=== PATIENT | male | born 1945 | race Caucasian/White ===

== ENCOUNTER 2020-02-06 09:49 | Inpatient (IN) ==
[2020-02-06] MEDS ORDERED: ACETAMINOPHEN 325 MG TABLET PO ONE (10:01)
--- NOTE | 2020-02-06 10:05 | ERNOTE ---
Medical Problem HPI - Narrative Date of Service: 02/06/20 - General Chief Complaint: Fever Time Seen by Provider: 02/06/20 09:58 Source: patient Exam Limitations: other - He does not know anything about his medications and little about his history. - Immun/Allergies/Home Medications Immunizations: IMMUNIZATION HX Immunizations Up to Date Yes History of Influenza Vaccine No Hx Pneumococcal Vaccination No Allergies/Adverse Reactions: Allergies lisinopril Allergy (Unknown, Verified 02/06/20 10:52) Penicillins Adverse Reaction (Mild, Verified 02/06/20 10:05) syncope Home Medications: HOME MEDICATIONS Acetaminophen [Tylenol] 1,000 mg PO Q8H PRN 02/06/20 [Last Taken Unknown] Amlodipine Besylate 5 mg PO DAILY 02/06/20 [Last Taken Unknown] Apixaban [Eliquis] 5 mg PO DAILY 02/06/20 [Last Taken Unknown] Aspirin [Aspirin EC] 81 mg PO DAILY 02/06/20 [Last Taken Unknown] Atorvastatin Calcium [Lipitor] 20 mg PO DAILY 02/06/20 [Last Taken Unknown] Bisacodyl 10 mg RC QDIPM PRN 02/06/20 [Last Taken Unknown] Clopidogrel Bisulfate [Clopidogrel] 300 mg PO DAILY 02/06/20 [Last Taken Unknown] Dextromethorphan HBr/Quinidine [Nuedexta 20-10 mg Capsule] 1 ea PO DAILY 02/06/20 [Last Taken Unknown] Diphenhydramine HCl 25 mg PO DAILY 02/06/20 [Last Taken Unknown] EPINEPHrine [Epipen] 0.3 mg IM PRN PRN 02/06/20 [Last Taken Unknown] Glucosamine/D3/Boswellia Ilene [Osteo Bi-Flex Caplet] 1 ea PO DAILY 02/06/20 [Last Taken Unknown] L. Acidophilus/Pectin, [place] [Acidophilus-Pectin Capsule] 1 ea PO DAILY 02/06/20 [Last Taken Unknown] Losartan Potassium 50 mg PO DAILY 02/06/20 [Last Taken Unknown] Magnesium Hydroxide [Milk of Magnesia] 30 ml PO Q3D PRN 02/06/20 [Last Taken Unknown] Miconazole Nitrate [Maddie] 1 appl TOPICAL BID 02/06/20 [Last Taken Unknown] Ondansetron [Zofran Odt] 4 mg PO Q8H PRN 07/17/20 [Last Taken Unknown] Pantoprazole Sodium [Protonix] 20 mg PO DAILY 02/06/20 [Last Taken Unknown] Polyethylene Glycol 3350 [Miralax] 17 gm PO DAILY 02/06/20 [Last Taken Unknown] Polyethylene Glycol 3350 [Miralax] 17 gm PO DAILY PRN 02/06/20 [Last Taken Unknown] Potassium Chloride [Klor-Con] 20 meq PO TID 02/06/20 [Last Taken Unknown] Sodium Phosphate,[place]-Dibasic [Fleet Enema] 1 enema RC DAILY PRN 02/06/20 [Last Taken Unknown] Vits A and D/White Pet/Lanolin [A and D Ointment] 1 appl TOPICAL PRN PRN 02/06/20 [Last Taken Unknown] guaiFENesin [Mucus Relief] 800 mg PO TID PRN 02/06/20 [Last Taken Unknown] - History of Present History Narrative: This patient is a 74-year-old gentleman who lives in a halfway. He was sent here by ambulance for a fever. It has been present for 2 nights and the maximum was 100.8. He vomited overnight. He does not feel well. 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 He has generalized weakness. He denies cough or cold symptoms. He has a mild amount of coughing during the exam. He denies urinary symptoms. He denies abdominal symptoms, other than the episode of vomiting. 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 Review of Systems - Review of Systems All Other Systems: All systems neg except as marked Medical History (Last Updated 02/06/20 @ 10:05 by Debbie Chacon RN) Arthropathy of left knee CVA (cerebral vascular accident) Hypertension Social History: (Last Updated 02/06/20 @ 10:04 by Debbie Chacon RN) Tobacco: Smoking Status: Never smoker Alcohol: alcohol intake: never Substance Use: substance use type: does not use Physical Exam - Physical Exam General Appearance: Present: alert, no apparent distress, other - Obvious left- sided hemiplegia Head Exam: Present: normal inspection, no evidence of injury Eye Exam: Normal inspection: bilateral Ears, Nose, Throat: Present: normal ENT inspection Neck: Present: normal inspection, supple. Absent: lymphadenopathy (R), lymphadenopathy (L) Respiratory: Present: no respiratory distress, normal breath sounds, lungs clear Cardiovascular/Chest: Present: regular rate, rhythm, no murmur Gastrointestinal/Abdominal: Present: normal bowel sounds, nontender, nondistended, soft, no organomegaly Extremity Exam: Present: normal inspection, non-tender, no edema Neurological Exam: Present: alert, normal mood/affect, other - Left-sided hemiplegia Skin Exam: Present: normal color, warm/dry Progress - Date and Time Seen: Date and Time: 02/06/20 12:12 I spoke with the patient and staff member at his halfway. The labs and x-rays were discussed. The halfway is expecting the patient will be kept here. The patient is agreeable to staying. I spoke with Dr. Garcia, who agrees to care for the patient. - Results and Orders Patient's Lab Results:: I have reviewed the patient's lab results. Results and Orders: Laboratory Tests 02/06/20 02/06/20 02/06/20 10:10 10:10 10:10 WBC 16.3 H RBC 4.55 L Hgb 14.7 Hct 43.9 MCV 96.5 MCH 32.3 H MCHC 33.5 RDW 13.3 Plt Count 223 MPV 10.1 Immature Gran % (Auto) 0.60 H Immature Gran # (Auto) 0.09 H Neutrophils % 86.3 H Lymphocytes % 6.5 L Monocytes % 6.3 Eosinophils % 0.1 Basophils % 0.2 Nucleated RBC % 0.0 Neutrophils # 14.0 H Lymphocytes # 1.06 L Monocytes # 1.0 Eosinophils # 0.0 Absolute Basophils 0.0 PT 11.7 H INR (Anticoag Therapy) 1.19 H Sodium 136 Plasma Sodium 136 Potassium 4.5 Chloride 101 Carbon Dioxide 25.0 Anion Gap 14.5 H BUN 16 Creatinine 0.87 Est GFR (Non-Af Amer) 92 BUN/Creatinine Ratio 18.4 Random Glucose 103 Lactic Acid, Venous Calcium 9.5 Calcium Adj for Albumin 9.6 Total Bilirubin 1.0 AST 12 ALT 13 L Alkaline Phosphatase 85 C-Reactive Prot, Quant 11.3 H Total Protein 8.2 Albumin 3.5 Procalcitonin Urine Color Urine Appearance Urine pH Ur Specific [place] Urine Protein Urine Glucose (UA) Urine Ketones Urine Blood Urine Nitrate Urine Bilirubin Urine Ictotest Prot Sulfosalicylic Acd Urine Urobilinogen Ur Leukocyte Esterase Urine RBC Urine WBC Ur Epithelial Cells Urine Bacteria Urine Culture Comments Chlamy pneumoniae PCR Adenovirus (PCR) B. pertussis DNA (PCR) Coronavirus OC43 (PCR) Coronavirus HKU1 (PCR) Coronavirus 229E (PCR) Coronavirus NL63 (PCR) Human Metapneumovir PCR Influenza A (H1) PCR Influenza A (H1N1) PCR Influenza A (H3) PCR Influenza B (RT-PCR) M. pneumoniae (PCR) Parainfluenza 1 (PCR) Parainfluenza 2 (PCR) Parainfluenza 3 (PCR) Parainfluenza 4 (PCR) RSV (PCR) Rhinovirus (PCR) SARS-CoV-2 (PCR) 02/06/20 02/06/20 02/06/20 10:10 10:10 10:15 WBC RBC Hgb Hct MCV MCH MCHC RDW Plt Count MPV Immature Gran % (Auto) Immature Gran # (Auto) Neutrophils % Lymphocytes % Monocytes % Eosinophils % Basophils % Nucleated RBC % Neutrophils # Lymphocytes # Monocytes # Eosinophils # Absolute Basophils PT INR (Anticoag Therapy) Sodium Plasma Sodium Potassium Chloride Carbon Dioxide Anion Gap BUN Creatinine Est GFR (Non-Af Amer) BUN/Creatinine Ratio Random Glucose Lactic Acid, Venous 2.5 H* Calcium Calcium Adj for Albumin Total Bilirubin AST ALT Alkaline Phosphatase C-Reactive Prot, Quant Total Protein Albumin Procalcitonin 0.07 Urine Color [place] Urine Appearance Clear Urine pH 5.5 Ur Specific [place] >=1.030 Urine Protein 15 H Urine Glucose (UA) Negative Urine Ketones 5 Urine Blood Negative Urine Nitrate Negative Urine Bilirubin 1 H Urine Ictotest Negative Prot Sulfosalicylic Acd Negative Urine Urobilinogen Normal Ur Leukocyte Esterase Negative Urine RBC None seen Urine WBC 0-5 Ur Epithelial Cells 0-5 Urine Bacteria Trace Urine Culture Comments No culture indicated Chlamy pneumoniae PCR Adenovirus (PCR) B. pertussis DNA (PCR) Coronavirus OC43 (PCR) Coronavirus HKU1 (PCR) Coronavirus 229E (PCR) Coronavirus NL63 (PCR) Human Metapneumovir PCR Influenza A (H1) PCR Influenza A (H1N1) PCR Influenza A (H3) PCR Influenza B (RT-PCR) M. pneumoniae (PCR) Parainfluenza 1 (PCR) Parainfluenza 2 (PCR) Parainfluenza 3 (PCR) Parainfluenza 4 (PCR) RSV (PCR) Rhinovirus (PCR) SARS-CoV-2 (PCR) 02/06/20 10:32 WBC RBC Hgb Hct MCV MCH MCHC RDW Plt Count MPV Immature Gran % (Auto) Immature Gran # (Auto) Neutrophils % Lymphocytes % Monocytes % Eosinophils % Basophils % Nucleated RBC % Neutrophils # Lymphocytes # Monocytes # Eosinophils # Absolute Basophils PT INR (Anticoag Therapy) Sodium Plasma Sodium Potassium Chloride Carbon Dioxide Anion Gap BUN Creatinine Est GFR (Non-Af Amer) BUN/Creatinine Ratio Random Glucose Lactic Acid, Venous Calcium Calcium Adj for Albumin Total Bilirubin AST ALT Alkaline Phosphatase C-Reactive Prot, Quant Total Protein Albumin Procalcitonin Urine Color Urine Appearance Urine pH Ur Specific [place] Urine Protein Urine Glucose (UA) Urine Ketones Urine Blood Urine Nitrate Urine Bilirubin Urine Ictotest Prot Sulfosalicylic Acd Urine Urobilinogen Ur Leukocyte Esterase Urine RBC Urine WBC Ur Epithelial Cells Urine Bacteria Urine Culture Comments Chlamy pneumoniae PCR Not detected Adenovirus (PCR) Not detected B. pertussis DNA (PCR) Not detected Coronavirus OC43 (PCR) Not detected Coronavirus HKU1 (PCR) Not detected Coronavirus 229E (PCR) Not detected Coronavirus NL63 (PCR) Not detected Human Metapneumovir PCR Not detected Influenza A (H1) PCR Not detected Influenza A (H1N1) PCR Not detected Influenza A (H3) PCR Not detected Influenza B (RT-PCR) Not detected M. pneumoniae (PCR) Not detected Parainfluenza 1 (PCR) Not detected Parainfluenza 2 (PCR) Not detected Parainfluenza 3 (PCR) Not detected Parainfluenza 4 (PCR) Not detected RSV (PCR) Not detected Rhinovirus (PCR) Not detected SARS-CoV-2 (PCR) Not detected - Vital Signs Patient's Vital Signs:: I have reviewed the patient's vital signs. Vital Signs: Vital Signs 02/06/20 09:50 Temperature 38.7 C H Pulse Rate 105 H Respiratory Rate 16 Blood Pressure 156/92 H O2 Sat by Pulse Oximetry 93 - EKG EKG #1 EKG read: Reviewed by me EKG Comments: History: Fever. Technique: Portable AP view of the chest is evaluated without comparison. Findings: Diffuse hyperinflation of the lungs bilaterally with flattening of the hemidiaphragm. Chronic scarring scattered calcified granulomas. The lungs are clear bilaterally. There is no consolidation, pleural effusion or pneumothorax. Cardiac silhouette and pulmonary vasculature are normal. Aortic tortuosity and atherosclerosis. The osseous structures demonstrate degenerative changes of the spine and shoulders. IMPRESSION: NO ACUTE CARDIOPULMONARY ABNORMALITY IDENTIFIED. Electronically signed by Paulo Potter D.O.. - Progress/Reassessment Chief Complaint: Fever Departure Clinical Impression: Fever, Elevated WBC count - Departure Disposition: Still a patient Condition: Stable Referrals: Alexus Angela MD [Primary Care Provider] -
[2020-02-06] MEDS: NORMAL SALINE 1,000 ML IV PRN ×3 (10:07→23:54)
[2020-02-06 10:21] LABS: Hematocrit 43.9 % (42.0-52.0); Hemoglobin 14.7 gm/dL (13.5-18.0); Mean Cell Volume 96.5 fl (78-100); Mean Corpuscular Hemoglobin 32.3 pg (27-31); Mean Corpuscular Hgb Conc 33.5 g/dl (32-36); Mean Platelet Volume 10.1 fl (8-11.3); Neutrophil % 86.3 % (42-75.0); Platelet Count 223 K/mm3 (150-450); Red Blood Count 4.55 M/mm3 (4.7-6.0); Red Cell Distribution Width 13.3 % (11.5-14.0); White Blood Count 16.3 K/mm3 (4.0-10.5)
[2020-02-06 10:27] LABS: Prothrombin Time (Patient) 11.7 Seconds (9.1-10.7)
[2020-02-06 10:30] LABS: INR 1.19 INR (0.92-1.08)
[2020-02-06 10:33] LABS: Albumin * 3.5 gm/dl (3.4-5.0); Anion Gap 14.5 mmol/L (6.8-13.8); BUN/Creatinine Ratio 18.4 (9.0-21.6); CRP 11.3 mg/dL (0.0-0.9); Ca. Corrected For Albumin 9.6 mg/dL (8.4-10.2); Calcium * 9.5 mg/dL (7.9-10.9); Potassium 4.5 mmol/L (3.4-4.6); Total Protein 8.2 gm/dL (6.2-8.2)
[2020-02-06 10:48] LABS: Urine Bilirubin 1 mg/dl (NEGATIVE); Urine Blood Negative /ul (NEGATIVE); Urine Ketone 5 mg/dL (NEGATIVE); Urine Nitrite Negative (NEGATIVE); Urine Protein 15 mg/dL (NEGATIVE); Urine Specific Gravity >=1.030 SP.GR. (1.005-1.030); Urine Urobilinogen Normal (NORMAL); Urine pH 5.5 pH (5.0-7.0)
[2020-02-06 11:08] LABS: Urine Appearance Clear (CLEAR); Urine Bacteria TRACE; Urine Color Orange; Urine RBC None Seen /hpf (0-5); Urine WBC 0-5 /hpf (0-5)
[2020-02-06] MEDS ORDERED: NORMAL SALINE 1,000 ML IV ONE (11:32)
[2020-02-06 11:40] LABS: SARS-CoV-2 Not Detected (NotDetected)
[2020-02-06] MEDS ORDERED: cefTRIAXone SODIUM 1,000 MG/100 ML BAG IV ONE ×2 (12:02→15:45)
[2020-02-06] MEDS ORDERED: NON-FORMULARY 1 DOSE DOSE IV SCH (12:15)
[2020-02-06] MEDS ORDERED: AZITHROMYCIN 500 MG in DEXTROSE 5 % IN WATER 250 ML IV ONE ×2 (12:30)
[2020-02-06] MEDS ORDERED: MAGNESIUM HYDROXIDE 30 ML UDC PO PRN (13:55)
[2020-02-06] MEDS ORDERED: SODIUM PHOSPHATE,MONO-DIBASIC 1 ENEMA BTL RC PRN (13:55)
[2020-02-06] MEDS ORDERED: ONDANSETRON 4 MG TAB.RAPDIS PO PRN (13:55)
[2020-02-06] MEDS ORDERED: POLYETHYLENE GLYCOL 3350 17 GM PACKET PO PRN (13:55)
[2020-02-06] MEDS ORDERED: BISACODYL 10 MG SUPP.RECT RC PRN (13:55)
[2020-02-06] MEDS: APIXABAN 5 MG TABLET PO SCH (15:48)
[2020-02-06] MEDS: LOSARTAN POTASSIUM 50 MG TABLET PO SCH (15:48)
[2020-02-06] MEDS: POTASSIUM CHLORIDE 20 MEQ TABLET.SA PO SCH (18:31)
[2020-02-06] MEDS ORDERED: ONDANSETRON HCL 4 MG TABLET PO PRN (19:26)
--- NOTE | 2020-02-06 19:42 | HP ---
Chief Complaint - Chief Complaint Date of Service: 02/06/20 Time of Service: 18:50 Chief Complaint: fever, leukocytosis, cellulitis of leg History of Present Illness: Suresh Dinero is a 74-year-old white male admitted through ER with fever, leukocytosis, and etiology uncertain. He was coughing a lot but chest x-ray is normal and the urinalysis is normal. Cultures were done. On my exam I found that his left leg is hot to touch and swollen and reddened. There are no open sores or drainage or purulence. This is a non-purulent cellulitis of the left lower extremity. It extends from the foot to just above the knee. There is no inguinal adenopathy. The d-dimer was negative (normal). He has had a series of strokes and says that he has had 5 strokes on the left and one stroke on the right. His speech is actually quite good. He said it took about 2 months for his speech to return after the initial stroke. The stroke occurred in 2016. He has been living in a [facility] from which he will claim he escaped. He is now living in a detention where the care is not great according to him. Nonetheless, he has snf. Medical History (Last Updated 02/06/20 @ 13:35 by Aide Longo RN) Arthropathy of left knee CVA (cerebral vascular accident) x6 Hypertension Social History: (Last Updated 02/06/20 @ 10:04 by Debbie Chacon RN) Tobacco: Smoking Status: Never smoker Alcohol: alcohol intake: never Substance Use: substance use type: does not use Review Of Systems (GEN) - Review of Systems Generalized/Overall Review: Present: Weakness, Fever, Malaise, Fatigue EENTM: Present: No Symptoms Reported Respiratory: Present: Cough Cardiac: Present: No Symptoms Reported Abdominal: Present: No Symptoms Reported Genitourinary: Present: No Symptoms Reported Musculoskeletal: Present: Other - Left hemiparesis Neurological: Present: Weakness, Other - Hemiparesis due to stroke Skin: Present: No Symptoms Reported Endocrine: Present: No Symptoms Reported Immunizations: IMMUNIZATION HX Immunizations Up to Date Yes History of Influenza Vaccine No Hx Pneumococcal Vaccination No Allergies/Adverse Reactions: Allergies Allergy/AdvReac Type Severity Reaction Status Date / Time lisinopril Allergy Unknown Verified 02/06/20 10:52 Penicillins AdvReac Mild Verified 02/06/20 10:05 Home Medications: HOME MEDICATIONS Acetaminophen [Tylenol] 1,000 mg PO Q8H PRN 02/06/20 [Last Taken Unknown] Amlodipine Besylate 5 mg PO DAILY 02/06/20 [Last Taken Unknown] Apixaban [Eliquis] 5 mg PO BID 02/06/20 [Last Taken Unknown] Atorvastatin Calcium [Lipitor] 20 mg PO DAILY 02/06/20 [Last Taken Unknown] Bisacodyl 10 mg RC QDIPM PRN 02/06/20 [Last Taken Unknown] Dextromethorphan HBr/Quinidine [Nuedexta 20-10 mg Capsule] 1 ea PO DAILY 02/06/20 [Last Taken Unknown] EPINEPHrine [Epipen] 0.3 mg IM PRN PRN 02/06/20 [Last Taken Unknown] Glucosamine/D3/Boswellia Ilene [Osteo Bi-Flex Caplet] 1 ea PO DAILY 02/06/20 [Last Taken Unknown] L. Acidophilus/Pectin, [place] [Acidophilus-Pectin Capsule] 1 ea PO DAILY 02/06/20 [Last Taken Unknown] Lactobacillus Acidophilus [Acidophilus] 1 ea PO DAILY 02/06/20 [Last Taken Unknown] Losartan Potassium 50 mg PO DAILY 02/06/20 [Last Taken Unknown] Magnesium Hydroxide [Milk of Magnesia] 30 ml PO Q72H PRN 02/06/20 [Last Taken Unknown] Miconazole Nitrate [Maddie] 1 appl TOPICAL BID 02/06/20 [Last Taken Unknown] Ondansetron HCl [Zofran] 4 mg PO TID PRN 02/06/20 [Last Taken Unknown] Pantoprazole Sodium [Protonix] 20 mg PO DAILY 02/06/20 [Last Taken Unknown] Polyethylene Glycol 3350 [Miralax] 17 gm PO DAILY 02/06/20 [Last Taken Unknown] Polyethylene Glycol 3350 [Miralax] 17 gm PO DAILY PRN 02/06/20 [Last Taken Unknown] Potassium Chloride [Klor-Con] 20 meq PO TID 02/06/20 [Last Taken Unknown] Sennosides/Docusate Sodium [Senokot-S] 1 tab PO DAILY 02/06/20 [Last Taken Unknown] Sodium Phosphate,[place]-Dibasic [Fleet Enema] 1 enema RC DAILY PRN 02/06/20 [Last Taken Unknown] Vits A and D/White Pet/Lanolin [A and D Ointment] 1 appl TOPICAL PRN PRN 02/06/20 [Last Taken Unknown] guaiFENesin [Mucus Relief] 800 mg PO TID PRN 02/06/20 [Last Taken Unknown] Exam - Exam Vital Signs: Vital Signs - Last Taken Temp 36.9 C 02/06/20 19:19 Pulse 88 02/06/20 19:19 Resp 20 02/06/20 19:19 BP 133/59 02/06/20 19:19 Pulse Ox 99 02/06/20 19:19 Constitutional: Present: Alert, Oriented x3, Cooperative, Well developed, Well nourished, No distress ENT Exam: Present: normal ENT inspection, hearing grossly normal, pharynx normal, TMs normal Eye Exam: bilateral eye: normal inspection, PERRL, EOMI Neck: Present: non-tender, full range of motion, supple Back Exam: Present: normal inspection, no CVA tenderness, no vertebral tenderness Breasts: Present: Exam deferred, Nontender Respiratory: Present: chest non-tender, lungs clear, normal breath sounds, no respiratory distress, no accessory muscle use Cardiovascular/Chest: Present: normal peripheral pulses, regular rate, rhythm, no chest tenderness, edema - Pitting lower extremities Peripheral Pulses: carotid (R): 2+, carotid (L): 2+, radial (R): 2+, radial (L): 2+ Abdomen: Present: Normal bowel sounds, soft, nontender, nondistended, no rebound tenderness, no hepatospenomegaly, no masses /Rectal: Present: Exam deferred Extremity: Present: normal range of motion - On the right side, no calf tenderness, normal capillary refill, inflammation, swelling, other - Erythema with palpable fever in the left lower extremity. 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 Absent: normal cerebellar test Appearance: Present: appropriate appearance, appropriate insight, no memory impairment Eye contact: Present: cooperative, good eye contact, normal speech Thoughts: Present: normal thought pattern, no apparent hallucination Diagnostic Studies: Abnormal Lab Results 02/06/20 02/06/20 02/06/20 Range/Units 10:10 10:10 10:10 WBC 16.3 H (4.0-10.5) K/mm3 RBC 4.55 L (4.7-6.0) M/mm3 MCH 32.3 H (27-31) pg Immature Gran % (Auto) 0.60 H (0.001-0.429) % Immature Gran # (Auto) 0.09 H (0.000-0.0310) K/mm3 Neutrophils % 86.3 H (42-75.0) % Lymphocytes % 6.5 L (20-51) % Neutrophils # 14.0 H (1.3-6.0) K/mm3 Lymphocytes # 1.06 L (1.5-3.5) k/mm3 PT 11.7 H (9.1-10.7) Seconds INR (Anticoag Therapy) 1.19 H (0.92-1.08) INR Anion Gap 14.5 H (6.8-13.8) mmol/L Lactic Acid, Venous (0.4-2.0) mmol/L ALT 13 L (19-67) U/L C-Reactive Prot, Quant 11.3 H (0.0-0.9) mg/dL Urine Protein (NEGATIVE) mg/dL Urine Bilirubin (NEGATIVE) mg/dl 02/06/20 02/06/20 Range/Units 10:10 10:15 WBC (4.0-10.5) K/mm3 RBC (4.7-6.0) M/mm3 MCH (27-31) pg Immature Gran % (Auto) (0.001-0.429) % Immature Gran # (Auto) (0.000-0.0310) K/mm3 Neutrophils % (42-75.0) % Lymphocytes % (20-51) % Neutrophils # (1.3-6.0) K/mm3 Lymphocytes # (1.5-3.5) k/mm3 PT (9.1-10.7) Seconds INR (Anticoag Therapy) (0.92-1.08) INR Anion Gap (6.8-13.8) mmol/L Lactic Acid, Venous 2.5 H* (0.4-2.0) mmol/L ALT (19-67) U/L C-Reactive Prot, Quant (0.0-0.9) mg/dL Urine Protein 15 H (NEGATIVE) mg/dL Urine Bilirubin 1 H (NEGATIVE) mg/dl Laboratory Results WBC 16.3 K/mm3 (4.0-10.5) H 02/06/20 10:10 RBC 4.55 M/mm3 (4.7-6.0) L 02/06/20 10:10 Hgb 14.7 gm/dL (13.5-18.0) 02/06/20 10:10 Hct 43.9 % (42.0-52.0) 02/06/20 10:10 MCV 96.5 fl (78-100) 02/06/20 10:10 MCH 32.3 pg (27-31) H 02/06/20 10:10 MCHC 33.5 g/dl (32-36) 02/06/20 10:10 RDW 13.3 % (11.5-14.0) 02/06/20 10:10 Plt Count 223 K/mm3 (150-450) 02/06/20 10:10 MPV 10.1 fl (8-11.3) 02/06/20 10:10 Immature Gran % (Auto) 0.60 % (0.001-0.429) H 02/06/20 10:10 Immature Gran # (Auto) 0.09 K/mm3 (0.000-0.0310) H 02/06/20 10:10 Neutrophils % 86.3 % (42-75.0) H 02/06/20 10:10 Lymphocytes % 6.5 % (20-51) L 02/06/20 10:10 Monocytes % 6.3 % (0.0-9) 02/06/20 10:10 Eosinophils % 0.1 % (0.0-3.0) 02/06/20 10:10 Basophils % 0.2 % (0.0-1.0) 02/06/20 10:10 Nucleated RBC % 0.0 k/mm3 (0-1) 02/06/20 10:10 Neutrophils # 14.0 K/mm3 (1.3-6.0) H 02/06/20 10:10 Lymphocytes # 1.06 k/mm3 (1.5-3.5) L 02/06/20 10:10 Monocytes # 1.0 k/mm3 (0.0-1.0) 02/06/20 10:10 Eosinophils # 0.0 k/mm3 (0.0-0.7) 02/06/20 10:10 Absolute Basophils 0.0 k/mm3 (0.0-0.1) 02/06/20 10:10 PT 11.7 Seconds (9.1-10.7) H 02/06/20 10:10 INR (Anticoag Therapy) 1.19 INR (0.92-1.08) H 02/06/20 10:10 D-Dimer 0.37 ug/mL (0.19-0.49) 02/06/20 13:15 Sodium 136 mmol/L (132-142) 02/06/20 10:10 Plasma Sodium 136 mmol/L (130-142) 02/06/20 10:10 Potassium 4.5 mmol/L (3.4-4.6) 02/06/20 10:10 Chloride 101 mmol/L (97-106) 02/06/20 10:10 Carbon Dioxide 25.0 mmol/L (24-32.6) 02/06/20 10:10 Anion Gap 14.5 mmol/L (6.8-13.8) H 02/06/20 10:10 BUN 16 mg/dL (6-23) 02/06/20 10:10 Creatinine 0.87 mg/dL (0.4-1.4) 02/06/20 10:10 Est GFR (Non-Af Amer) 92 mL/min (60-130) 02/06/20 10:10 BUN/Creatinine Ratio 18.4 (9.0-21.6) 02/06/20 10:10 Random Glucose 103 mg/dL (70-110) 02/06/20 10:10 Lactic Acid, Venous 1.6 mmol/L (0.4-2.0) 02/06/20 13:15 Calcium 9.5 mg/dL (7.9-10.9) 02/06/20 10:10 Calcium Adj for Albumin 9.6 mg/dL (8.4-10.2) 02/06/20 10:10 Total Bilirubin 1.0 mg/dL (0.0-1.1) 02/06/20 10:10 AST 12 U/L (0-48) 02/06/20 10:10 ALT 13 U/L (19-67) L 02/06/20 10:10 Alkaline Phosphatase 85 U/L (50-170) 02/06/20 10:10 C-Reactive Prot, Quant 11.3 mg/dL (0.0-0.9) H 02/06/20 10:10 Total Protein 8.2 gm/dL (6.2-8.2) 02/06/20 10:10 Albumin 3.5 gm/dl (3.4-5.0) 02/06/20 10:10 Procalcitonin 0.07 ng/mL (0.05-0.50) 02/06/20 10:10 Urine Color [place] 02/06/20 10:15 Urine Appearance Clear (CLEAR) 02/06/20 10:15 Urine pH 5.5 pH (5.0-7.0) 02/06/20 10:15 Ur Specific [place] >=1.030 SP.GR. (1.005-1.030) 02/06/20 10:15 Urine Protein 15 mg/dL (NEGATIVE) H 02/06/20 10:15 Urine Glucose (UA) Negative mg/dL (NEGATIVE) 02/06/20 10:15 Urine Ketones 5 mg/dL (NEGATIVE) 02/06/20 10:15 Urine Blood Negative /ul (NEGATIVE) 02/06/20 10:15 Urine Nitrate Negative (NEGATIVE) 02/06/20 10:15 Urine Bilirubin 1 mg/dl (NEGATIVE) H 02/06/20 10:15 Urine Ictotest Negative (NEGATIVE) 02/06/20 10:15 Prot Sulfosalicylic Acd Negative mg/dL (0) 02/06/20 10:15 Urine Urobilinogen Normal EU/dl (NORMAL) 02/06/20 10:15 Ur Leukocyte Esterase Negative /ul (NEGATIVE) 02/06/20 10:15 Urine RBC None seen /hpf (0-5) 02/06/20 10:15 Urine WBC 0-5 /hpf (0-5) 02/06/20 10:15 Ur Epithelial Cells 0-5 /hpf (0-5) 02/06/20 10:15 Urine Bacteria Trace (NONE) 02/06/20 10:15 Urine Culture Comments No culture indicated 02/06/20 10:15 Chlamy pneumoniae PCR Not detected (NotDetected) 02/06/20 10:32 Adenovirus (PCR) Not detected (NotDetected) 02/06/20 10:32 B. pertussis DNA (PCR) Not detected (NotDetected) 02/06/20 10:32 Coronavirus OC43 (PCR) Not detected (NotDetected) 02/06/20 10:32 Coronavirus HKU1 (PCR) Not detected (NotDetected) 02/06/20 10:32 Coronavirus 229E (PCR) Not detected (NotDetected) 02/06/20 10:32 Coronavirus NL63 (PCR) Not detected (NotDetected) 02/06/20 10:32 Human Metapneumovir PCR Not detected (NotDetected) 02/06/20 10:32 Influenza A (H1) PCR Not detected (NotDetected) 02/06/20 10:32 Influenza A (H1N1) PCR Not detected (NotDetected) 02/06/20 10:32 Influenza A (H3) PCR Not detected (NotDetected) 02/06/20 10:32 Influenza B (RT-PCR) Not detected (NotDetected) 02/06/20 10:32 M. pneumoniae (PCR) Not detected (NotDetected) 02/06/20 10:32 Parainfluenza 1 (PCR) Not detected (NotDetected) 02/06/20 10:32 Parainfluenza 2 (PCR) Not detected (NotDetected) 02/06/20 10:32 Parainfluenza 3 (PCR) Not detected (NotDetected) 02/06/20 10:32 Parainfluenza 4 (PCR) Not detected (NotDetected) 02/06/20 10:32 RSV (PCR) Not detected (NotDetected) 02/06/20 10:32 Rhinovirus (PCR) Not detected (NotDetected) 02/06/20 10:32 SARS-CoV-2 (PCR) Not detected (NotDetected) 02/06/20 10:32 Assessment/Plan - Narrative Narrative: 1. He was to be started on IV Ancef 1 g 3 times a day per the cellulitis protocol for nonpurulent cellulitis. 2. I will continue his usual medications for the most part. 3. Repeat lab tomorrow morning. 4. I anticipate that he will be here through the weekend. - Assessment/Plan (1) Fever Problem: Acute Qualifiers: Fever type: due to other condition Qualified Code(s): R50.81 - Fever presenting with conditions classified elsewhere (2) Elevated WBC count Problem: Acute Qualifiers: Leukocytosis type: bandemia Qualified Code(s): D72.825 - Bandemia (3) Cellulitis and abscess of lower extremity Problem: Acute (4) History of embolic stroke Problem: Acute
[2020-02-06] MEDS: SENNOSIDES/DOCUSATE SODIUM 1 TAB TABLET PO SCH (21:04)
[2020-02-06] MEDS: MICONAZOLE NITRATE 30 APPL TUBE TP SCH (21:05)
[2020-02-06] MEDS: ACETAMINOPHEN 500 MG TABLET PO PRN (22:49)
[2020-02-07] MEDS: ceFAZolin SODIUM 1 GM in DEXTROSE 5 % IN WATER 100 ML IV SCH ×6 (03:53→20:44)
[2020-02-07] MEDS: PANTOPRAZOLE SODIUM 20 MG TABLET.DR PO SCH (06:29)
[2020-02-07 06:44] LABS: Hematocrit 36.3 % (42.0-52.0); Hemoglobin 12.2 gm/dL (13.5-18.0); Mean Cell Volume 96.8 fl (78-100); Mean Corpuscular Hemoglobin 32.5 pg (27-31); Mean Corpuscular Hgb Conc 33.6 g/dl (32-36); Mean Platelet Volume 10.4 fl (8-11.3); Neutrophil # 9.3 K/mm3 (1.3-6.0); Neutrophil % 79.2 % (42-75.0); Platelet Count 173 K/mm3 (150-450); Red Blood Count 3.75 M/mm3 (4.7-6.0); Red Cell Distribution Width 13.2 % (11.5-14.0); White Blood Count 11.7 K/mm3 (4.0-10.5)
[2020-02-07 06:57] LABS: Albumin * 2.6 gm/dl (3.4-5.0); Anion Gap 7.4 mmol/L (6.8-13.8); Bilirubin, Total 0.5 mg/dL (0.0-1.1); Calcium * 8.2 mg/dL (7.9-10.9); Carbon Dioxide 25.8 mmol/L (24-32.6); Potassium 3.2 mmol/L (3.4-4.6); Total Protein 6.4 gm/dL (6.2-8.2)
[2020-02-07 07:09] LABS: Troponin I 0.046 ng/mL (0.00-0.10)
[2020-02-07] MEDS: NORMAL SALINE 1,000 ML IV PRN ×2 (08:29→16:59)
[2020-02-07] MEDS ORDERED: CLOPIDOGREL BISULFATE 300 MG PO SCH (09:00)
[2020-02-07] MEDS ORDERED: QUINIDINE PO SCH (09:00)
[2020-02-07] MEDS ORDERED: DEXTROMETHORPHAN HBR PO SCH (09:00)
[2020-02-07] MEDS ORDERED: [UNRECOGNIZED DRUG - OTHER] PO SCH (09:00)
[2020-02-07] MEDS ORDERED: LACTOBACILLUS ACIDOPHILUS PO SCH (09:00)
[2020-02-07] MEDS ORDERED: ASPIRIN 81 MG TABLET.DR PO SCH (09:00)
[2020-02-07] MEDS ORDERED: diphenhydrAMINE HCL 25 MG CAPSULE PO SCH (09:00)
[2020-02-07] MEDS: LACTOBACILLUS ACIDOPHILUS 1 EACH CAPSULE PO SCH (09:04)
[2020-02-07] MEDS: APIXABAN 5 MG TABLET PO SCH (09:04)
[2020-02-07] MEDS: LOSARTAN POTASSIUM 50 MG TABLET PO SCH (09:08)
[2020-02-07] MEDS: POLYETHYLENE GLYCOL 3350 17 GM PACKET PO SCH (09:09)
[2020-02-07] MEDS: amLODIPine BESYLATE 5 MG TABLET PO SCH (09:09)
[2020-02-07] MEDS: ROSUVASTATIN CALCIUM 10 MG TABLET PO SCH (09:10)
[2020-02-07] MEDS: POTASSIUM CHLORIDE 20 MEQ TABLET.SA PO SCH ×3 (09:10→16:26)
[2020-02-07] MEDS: SENNOSIDES/DOCUSATE SODIUM 1 TAB TABLET PO SCH (09:10)
[2020-02-07] MEDS: MICONAZOLE NITRATE 30 APPL TUBE TP SCH ×2 (09:10→20:45)
--- NOTE | 2020-02-07 11:38 | PN ---
Subjective - Date and Time Seen Date: 02/07/20 Time: 08:25 Subjective Narrative: Suresh had an uneventful night. He said he slept very well last night. He states the long term in which she lives present [place] to [place] and so he is constantly hearing trains and their noise to go by every night when he is trying to sleep. He was thankful to have a good night sleep away from that. He is feeling some better this morning. He is afebrile now and his temperature has defervesced to 36.6 Celsius this morning. His other vital signs are stable. Is blood pressure is 99/48, pulse is 65 and regular, respiratory 18 and unlabored, O2 sats 100% on room air. Examination shows the leg is still hot to touch and red up into the groin area. Since his fever has dissipated I will continue Ancef but if I do not see improvement in the redness by tomorrow I will change him to clindamycin. Blood cultures are still pending. Objective - Review of Systems Generalized/Overall Review: Reports: Weakness, Malaise, Fatigue EENTM: Reports: No Symptoms Reported Respiratory: Reports: No Symptoms Reported Cardiac: Reports: No Symptoms Reported Abdominal: Reports: No Symptoms Reported Genitourinary Symptoms: Reports: Incontinent Musculoskeletal Complaints: Reports: No Symptoms Reported Neurological: Reports: Other - History of stroke with hemiparesis Skin: Reports: No Symptoms Reported Endocrine: Reports: No Symptoms Reported - Vitals Vitals: Last Vital Signs Temp 36.6 C 02/07/20 10:39 Pulse 58 L 02/07/20 10:39 Resp 18 02/07/20 10:39 BP 99/48 02/07/20 10:39 Pulse Ox 100 02/07/20 10:39 - Abnormal Lab Findings Abnormal Lab Findings: Abnormal Lab Results 02/07/20 02/07/20 02/07/20 Range/Units 06:25 06:25 06:25 WBC 11.7 H D (4.0-10.5) K/mm3 RBC 3.75 L (4.7-6.0) M/mm3 Hgb 12.2 L (13.5-18.0) gm/dL Hct 36.3 L (42.0-52.0) % MCH 32.5 H (27-31) pg Immature Gran % (Auto) 0.60 H (0.001-0.429) % Immature Gran # (Auto) 0.07 H (0.000-0.0310) K/mm3 Neutrophils % 79.2 H (42-75.0) % Lymphocytes % 10.9 L (20-51) % Neutrophils # 9.3 H (1.3-6.0) K/mm3 Lymphocytes # 1.28 L (1.5-3.5) k/mm3 ESR 55 H (0-10) mm/hr Sodium 131 L (132-142) mmol/L Potassium 3.2 L D (3.4-4.6) mmol/L Random Glucose 113 H (70-110) mg/dL ALT 11 L (19-67) U/L Albumin 2.6 L (3.4-5.0) gm/dl - EKG/Xray Findings EKG: NSR EKG read: Reviewed by me Interpretation: Reviewed by me - Exam Constitutional: Present: Alert, Oriented x3, Cooperative, Well developed, Well nourished, No distress ENT Exam: Present: normal ENT inspection, hearing grossly normal, pharynx normal Neck: Present: non-tender, full range of motion, supple, normal inspection, trachea midline Breasts: Present: Nontender Respiratory: Present: chest non-tender, lungs clear, normal breath sounds, no respiratory distress, no accessory muscle use Cardiovascular/Chest: Present: normal peripheral pulses, regular rate, rhythm, no chest tenderness, no edema, no gallop, no JVD, no murmur, no rub Abdomen: Present: Normal bowel sounds, soft, nontender, nondistended, no rebound tenderness, no hepatospenomegaly, no masses /Rectal: Present: Exam deferred Extremity: Present: leg pain, pedal edema, swelling, other - Erythema and fever Skin Exam: Present: normal color - Except for the right leg. Lymphatic: Present: no adenopathy Neurologic: Present: motor weakness - Right side. He was unable to stand to pivot to a chair this morning. I will start physical therapy with him. Appearance: Present: appropriate appearance, appropriate insight, neat, no memory impairment Eye contact: Present: cooperative, good eye contact, normal speech Thoughts: Present: normal thought pattern, no apparent hallucination Assessment/Plan Plan Narrative: 1. Continue Ancef 1 g 3 times daily 2. Await blood cultures 3. Change antibiotic tomorrow if the erythema and edema have not begun to subside 4. Repeat lab tomorrow morning - Problems/Diagnosis (1) Fever Problem: Acute Qualifiers: Fever type: due to other condition Qualified Code(s): R50.81 - Fever presenting with conditions classified elsewhere (2) Elevated WBC count Problem: Acute Qualifiers: Leukocytosis type: bandemia Qualified Code(s): D72.825 - Bandemia (3) Cellulitis and abscess of lower extremity Problem: Acute (4) History of embolic stroke Problem: Acute
[2020-02-07] MEDS: ACETAMINOPHEN 500 MG TABLET PO PRN (23:19)
[2020-02-08] MEDS: NORMAL SALINE 1,000 ML IV PRN ×3 (01:03→18:50)
[2020-02-08] MEDS: ceFAZolin SODIUM 1 GM in DEXTROSE 5 % IN WATER 100 ML IV SCH ×6 (03:31→20:14)
[2020-02-08 06:24] LABS: Hematocrit 36.3 % (42.0-52.0); Mean Cell Volume 97.8 fl (78-100); Mean Corpuscular Hemoglobin 32.3 pg (27-31); Mean Corpuscular Hgb Conc 33.1 g/dl (32-36); Mean Platelet Volume 10.3 fl (8-11.3); Neutrophil # 5.6 K/mm3 (1.3-6.0); Neutrophil % 68.2 % (42-75.0); Platelet Count 178 K/mm3 (150-450); Red Blood Count 3.71 M/mm3 (4.7-6.0); Red Cell Distribution Width 13.2 % (11.5-14.0); White Blood Count 8.2 K/mm3 (4.0-10.5)
[2020-02-08 06:44] LABS: Albumin * 2.5 gm/dl (3.4-5.0); Anion Gap 11.7 mmol/L (6.8-13.8); BUN/Creatinine Ratio 13.4 (9.0-21.6); Bilirubin, Total 0.3 mg/dL (0.0-1.1); Ca. Corrected For Albumin 8.8 mg/dL (8.4-10.2); Calcium * 7.9 mg/dL (7.9-10.9); Carbon Dioxide 23.7 mmol/L (24-32.6); Potassium 3.4 mmol/L (3.4-4.6); Total Protein 6.3 gm/dL (6.2-8.2)
[2020-02-08] MEDS: PANTOPRAZOLE SODIUM 20 MG TABLET.DR PO SCH (06:47)
[2020-02-08] MEDS: LACTOBACILLUS ACIDOPHILUS 1 EACH CAPSULE PO SCH (08:10)
[2020-02-08] MEDS: APIXABAN 5 MG TABLET PO SCH (08:10)
[2020-02-08] MEDS: SENNOSIDES/DOCUSATE SODIUM 1 TAB TABLET PO SCH (08:10)
[2020-02-08] MEDS: POLYETHYLENE GLYCOL 3350 17 GM PACKET PO SCH (08:10)
[2020-02-08] MEDS: ROSUVASTATIN CALCIUM 10 MG TABLET PO SCH (08:10)
[2020-02-08] MEDS: POTASSIUM CHLORIDE 20 MEQ TABLET.SA PO SCH ×3 (08:10→17:21)
[2020-02-08] MEDS: amLODIPine BESYLATE 5 MG TABLET PO SCH (08:10)
[2020-02-08] MEDS: LOSARTAN POTASSIUM 50 MG TABLET PO SCH (08:11)
[2020-02-08] MEDS: MICONAZOLE NITRATE 30 APPL TUBE TP SCH ×2 (08:11→20:16)
--- NOTE | 2020-02-08 10:35 | PN ---
Subjective - Date and Time Seen Date: 02/08/20 Time: 09:00 Subjective Narrative: Suresh's had an uneventful night. He thinks he is feeling some better and having less left leg discomfort this morning. He has eaten breakfast without difficulty. Monitoring has been uneventful. Nursing has no new issues to report. Vital signs as morning show temperature 36.2, pulse is 57, respiratory 18 and unlabored, BP through the night was 118/70 but this morning dropped to 9 7/66. His white count is now normal at 8200 with a normal differential. All chemistries are in normal range. Potassium it was 3.4 up from 3.2 yesterday. Exam of the left leg today shows a decrease in the redness. The medial thigh that was red and febrile yesterday is not today. The redness below the knee is less hyperemic today and it is less febrile per palpation. Therefore I think the Ancef is working. His blood cultures are no growth at 48 hours. Continue current therapy without change. Anticipate discharge perhaps tomorrow on oral anti-biotics. Objective - Review of Systems Generalized/Overall Review: Reports: No Symptoms Reported EENTM: Reports: No Symptoms Reported Respiratory: Reports: No Symptoms Reported Cardiac: Reports: No Symptoms Reported Abdominal: Reports: No Symptoms Reported Genitourinary Symptoms: Reports: Incontinent Musculoskeletal Complaints: Reports: No Symptoms Reported Neurological: Reports: Other - History of stroke with residual hemiparesis Skin: Reports: No Symptoms Reported Endocrine: Reports: No Symptoms Reported - Vitals Vitals: Last Vital Signs Temp 36.2 C 02/08/20 09:59 Pulse 57 L 02/08/20 09:59 Resp 20 02/08/20 09:59 BP 97/66 02/08/20 09:59 Pulse Ox 99 02/08/20 09:59 - Abnormal Lab Findings Abnormal Lab Findings: Abnormal Lab Results 02/08/20 02/08/20 Range/Units 06:10 06:10 RBC 3.71 L (4.7-6.0) M/mm3 Hgb 12.0 L (13.5-18.0) gm/dL Hct 36.3 L (42.0-52.0) % MCH 32.3 H (27-31) pg Lymphocytes % 16.9 L (20-51) % Monocytes % 13.0 H (0.0-9) % Lymphocytes # 1.39 L (1.5-3.5) k/mm3 Monocytes # 1.1 H (0.0-1.0) k/mm3 Carbon Dioxide 23.7 L (24-32.6) mmol/L ALT 11 L (19-67) U/L Albumin 2.5 L (3.4-5.0) gm/dl - Exam Constitutional: Present: Alert, Oriented x3, Cooperative, Well developed, Well nourished, No distress ENT Exam: Present: normal ENT inspection, hearing grossly normal, pharynx normal, TMs normal Neck: Present: non-tender, full range of motion, supple, normal inspection, trachea midline Breasts: Present: Exam deferred Respiratory: Present: chest non-tender, lungs clear, normal breath sounds, no respiratory distress, no accessory muscle use Cardiovascular/Chest: Present: normal peripheral pulses, regular rate, rhythm, no chest tenderness, no edema, no gallop, no JVD, no murmur, no rub Abdomen: Present: Normal bowel sounds, soft, nontender, nondistended, no rebound tenderness, no hepatospenomegaly, no masses /Rectal: Present: Exam deferred Extremity: Present: inflammation - Left leg with interval improvement from yesterday., lower extremity edema - Left leg with interval improvement from yesterday. Skin Exam: Present: normal color - Except for the left leg. No erythema above the knee now. Erythema below the knee is less ruborous and less fever. He reports less pain there. Lymphatic: Present: no adenopathy Appearance: Present: appropriate appearance, appropriate insight, neat Eye contact: Present: cooperative, good eye contact, normal speech Thoughts: Present: normal thought pattern, no apparent hallucination Assessment/Plan Plan Narrative: 1. Continue Ancef at current dosing. 2. Switch to oral antibiotics tomorrow 3. Anticipate discharge tomorrow 4. CBC and BMP tomorrow. Sed rate tomorrow as well. - Problems/Diagnosis (1) Cellulitis and abscess of lower extremity Problem: Acute (2) Fever Problem: Resolved Qualifiers: Fever type: due to other condition Qualified Code(s): R50.81 - Fever presenting with conditions classified elsewhere (3) Elevated WBC count Problem: Resolved (4) History of embolic stroke Problem: Chronic
[2020-02-09] MEDS: ceFAZolin SODIUM 1 GM in DEXTROSE 5 % IN WATER 100 ML IV SCH ×2 (03:56)
[2020-02-09] MEDS: NORMAL SALINE 1,000 ML IV PRN (03:58)
[2020-02-09 06:42] LABS: Hematocrit 32.9 % (42.0-52.0); Mean Cell Volume 95.1 fl (78-100); Mean Corpuscular Hemoglobin 31.8 pg (27-31); Mean Corpuscular Hgb Conc 33.4 g/dl (32-36); Mean Platelet Volume 9.7 fl (8-11.3); Neutrophil % 72.6 % (42-75.0); Platelet Count 187 K/mm3 (150-450); Red Blood Count 3.46 M/mm3 (4.7-6.0); Red Cell Distribution Width 13.1 % (11.5-14.0); White Blood Count 6.9 K/mm3 (4.0-10.5)
[2020-02-09] MEDS: PANTOPRAZOLE SODIUM 20 MG TABLET.DR PO SCH (06:47)
[2020-02-09 06:52] LABS: Anion Gap 10.2 mmol/L (6.8-13.8); BUN/Creatinine Ratio 8.8 (9.0-21.6); Calcium * 8.5 mg/dL (7.9-10.9); Carbon Dioxide 24.4 mmol/L (24-32.6); Potassium 3.6 mmol/L (3.4-4.6)
[2020-02-09] MEDS ORDERED: CEPHALEXIN MONOHYDRATE 500 MG CAPSULE PO SCH (09:00)
--- NOTE | 2020-02-09 09:07 | DS ---
(1) Cellulitis and abscess of lower extremity Problem: Acute (2) Fever Problem: Resolved Qualifiers: Fever type: due to other condition Qualified Code(s): R50.81 - Fever presenting with conditions classified elsewhere (3) Elevated WBC count Problem: Resolved (4) History of embolic stroke Problem: Chronic Date of Discharge:: 02/09/20 Hospital Course: 74-year-old male with a past medical history of CVA, hypertension, left knee arthropathy presents from home with complaints of left leg pain. He was found to have cellulitis and started on cefazolin. He has had resolution of his symptoms and white blood cell count has normalized. He is afebrile, vitals are stable. He is stable to be discharged home today. He will follow-up with me in the office within the next 1 week. I will send him home on Keflex for 2 more days. Procedures Performed: none Results and Findings: Pending Mircobiology Results 02/06/20 10:41 Blood Blood Culture - Preliminary NO GROWTH AFTER 48 HOURS 02/06/20 10:10 Blood Blood Culture - Preliminary NO GROWTH AFTER 48 HOURS Lab Pending Results 02/06/20 10:10: WBC 16.3 H, RBC 4.55 L, Hgb 14.7, Hct 43.9, MCV 96.5, MCH 32.3 H, MCHC 33.5, RDW 13.3, Plt Count 223, MPV 10.1, Immature Gran % (Auto) 0.60 H, Immature Gran # (Auto) 0.09 H, Neutrophils % 86.3 H, Lymphocytes % 6.5 L, Monocytes % 6.3, Eosinophils % 0.1, Basophils % 0.2, Nucleated RBC % 0.0, Neutrophils # 14.0 H, Lymphocytes # 1.06 L, Monocytes # 1.0, Eosinophils # 0.0, Absolute Basophils 0.0 02/06/20 10:10: PT 11.7 H, INR (Anticoag Therapy) 1.19 H 02/06/20 10:10: Sodium 136, Plasma Sodium 136, Potassium 4.5, Chloride 101, Carbon Dioxide 25.0, Anion Gap 14.5 H, BUN 16, Creatinine 0.87, Est GFR (Non-Af Amer) 92, BUN/Creatinine Ratio 18.4, Random Glucose 103, Calcium 9.5, Calcium Adj for Albumin 9.6, Total Bilirubin 1.0, AST 12, ALT 13 L, Alkaline Phosphatase 85, C-Reactive Prot, Quant 11.3 H, Total Protein 8.2, Albumin 3.5 02/06/20 10:10: Procalcitonin 0.07 02/06/20 10:10: Lactic Acid, Venous 2.5 H* 02/06/20 10:15: Urine Color [place], Urine Appearance Clear, Urine pH 5.5, Ur Specific [place] >=1.030, Urine Protein 15 H, Urine Glucose (UA) Negative, Urine Ketones 5, Urine Blood Negative, Urine Nitrate Negative, Urine Bilirubin 1 H, Urine Ictotest Negative, Prot Sulfosalicylic Acd Negative, Urine Urobilinogen Normal, Ur Leukocyte Esterase Negative, Urine RBC None seen, Urine WBC 0-5, Ur Epithelial Cells 0-5, Urine Bacteria Trace, Urine Culture Comments No culture indicated 02/06/20 10:32: Chlamy pneumoniae PCR Not detected, Adenovirus (PCR) Not detected, B. pertussis DNA (PCR) Not detected, Coronavirus OC43 (PCR) Not detected, Coronavirus HKU1 (PCR) Not detected, Coronavirus 229E (PCR) Not detected, Coronavirus NL63 (PCR) Not detected, Human Metapneumovir PCR Not detected, Influenza A (H1) PCR Not detected, Influenza A (H1N1) PCR Not detected, Influenza A (H3) PCR Not detected, Influenza B (RT-PCR) Not detected, M. pneumoniae (PCR) Not detected, Parainfluenza 1 (PCR) Not detected, Parainfluenza 2 (PCR) Not detected, Parainfluenza 3 (PCR) Not detected, Parainfluenza 4 (PCR) Not detected, RSV (PCR) Not detected, Rhinovirus (PCR) Not detected, SARS-CoV-2 (PCR) Not detected 02/06/20 13:15: Lactic Acid, Venous 1.6 02/06/20 13:15: D-Dimer 0.37 02/07/20 06:25: WBC 11.7 H D, RBC 3.75 L, Hgb 12.2 L, Hct 36.3 L, MCV 96.8, MCH 32.5 H, MCHC 33.6, RDW 13.2, Plt Count 173, MPV 10.4, Immature Gran % (Auto) 0.60 H, Immature Gran # (Auto) 0.07 H, Neutrophils % 79.2 H, Lymphocytes % 10.9 L, Monocytes % 8.8, Eosinophils % 0.3, Basophils % 0.2, Nucleated RBC % 0.0, Neutrophils # 9.3 H, Lymphocytes # 1.28 L, Monocytes # 1.0, Eosinophils # 0.0, Absolute Basophils 0.0 02/07/20 06:25: Sodium 131 L, Plasma Sodium 131, Potassium 3.2 L D, Chloride 101, Carbon Dioxide 25.8, Anion Gap 7.4, BUN 12, Creatinine 0.86, Est GFR (Non- Af Amer) 93, BUN/Creatinine Ratio 14.0, Random Glucose 113 H, Calcium 8.2, Calcium Adj for Albumin 9.0, Total Bilirubin 0.5, AST 13, ALT 11 L, Alkaline Phosphatase 66, Troponin I 0.046, Total Protein 6.4, Albumin 2.6 L 02/07/20 06:25: ESR 55 H 02/08/20 06:10: WBC 8.2 D, RBC 3.71 L, Hgb 12.0 L, Hct 36.3 L, MCV 97.8, MCH 32.3 H, MCHC 33.1, RDW 13.2, Plt Count 178, MPV 10.3, Immature Gran % (Auto) 0.20, Immature Gran # (Auto) 0.02, Neutrophils % 68.2, Lymphocytes % 16.9 L, Monocytes % 13.0 H, Eosinophils % 1.3, Basophils % 0.4, Nucleated RBC % 0.0, Neutrophils # 5.6, Lymphocytes # 1.39 L, Monocytes # 1.1 H, Eosinophils # 0.1, Absolute Basophils 0.0 02/08/20 06:10: Sodium 134, Plasma Sodium 134, Potassium 3.4, Chloride 102, Carbon Dioxide 23.7 L, Anion Gap 11.7, BUN 9, Creatinine 0.67, Est GFR (Non-Af Amer) 124 D, BUN/Creatinine Ratio 13.4, Random Glucose 104, Calcium 7.9, Calcium Adj for Albumin 8.8, Total Bilirubin 0.3, AST 17, ALT 11 L, Alkaline Phosphatase 59, Total Protein 6.3, Albumin 2.5 L 02/09/20 06:30: WBC 6.9, RBC 3.46 L, Hgb 11.0 L, Hct 32.9 L, MCV 95.1, MCH 31.8 H, MCHC 33.4, RDW 13.1, Plt Count 187, MPV 9.7, Immature Gran % (Auto) 0.40, Immature Gran # (Auto) 0.03, Neutrophils % 72.6, Lymphocytes % 15.6 L, Monocytes % 8.5, Eosinophils % 2.5, Basophils % 0.4, Nucleated RBC % 0.0, Neutrophils # 5.0, Lymphocytes # 1.08 L, Monocytes # 0.6, Eosinophils # 0.2, Absolute Basophils 0.0 02/09/20 06:30: ESR 55 H 02/09/20 06:30: Sodium 136, Plasma Sodium 136, Potassium 3.6, Chloride 105, Carbon Dioxide 24.4, Anion Gap 10.2, BUN 5 L, Creatinine 0.57, Est GFR (Non-Af Amer) 149 H D, BUN/Creatinine Ratio 8.8 L, Random Glucose 97, Calcium 8.5 Discharge Location: Home Disposition: Home Health Service Home Health Agency: Other - [facility] Condition: Stable Discharge Activity: Activity as tolerated Discharge Diet: General/regular food Referrals: Alexus Angela MD [Primary Care Provider] - Additional Patient Instructions (free text): Has [employer] [facility]. Call [phone] to give report and fax discharge information to [phone]. Lives in [facility] housing, please call [phone] when discharged and fax discharge info to [phone]. Please keep your appointment you already have with Dr. Angela 02/10/2020 at 2:00p.m. Prescriptions (Any new or edited meds): Cephalexin Monohydrate [Keflex] 500 mg PO QID #8 cap Transmission Status: Received by [facility] Complete Home Medications List: Complete Home Medication List: Acetaminophen [Tylenol] 1,000 mg PO Q8H PRN 02/06/20 Amlodipine Besylate 5 mg PO HS 02/06/20 Apixaban [Eliquis] 5 mg PO BID 02/06/20 Atorvastatin Calcium [Lipitor] 20 mg PO HS 02/06/20 Bisacodyl 10 mg RC QDIPM PRN 02/06/20 Dextromethorphan HBr/Quinidine [Nuedexta 20-10 mg Capsule] 1 ea PO DAILY 02/06/20 EPINEPHrine [Epipen] 0.3 mg IM PRN PRN 02/06/20 Glucosamine/D3/Boswellia [place] [Osteo Bi-Flex Caplet] 1 ea PO DAILY 02/06/20 L. Acidophilus/Pectin, [place] [Acidophilus-Pectin Capsule] 1 ea PO DAILY 02/06/20 Lactobacillus Acidophilus [Acidophilus] 1 ea PO DAILY 02/06/20 Losartan Potassium 50 mg PO DAILY 02/06/20 Magnesium Hydroxide [Milk of Magnesia] 30 ml PO Q72H PRN 02/06/20 Miconazole Nitrate [Maddie] 1 appl TOPICAL BID 02/06/20 Ondansetron HCl [Zofran] 4 mg PO TID PRN 02/06/20 Pantoprazole Sodium [Protonix] 20 mg PO DAILY 02/06/20 Polyethylene Glycol 3350 [Miralax] 17 gm PO DAILY 02/06/20 Polyethylene Glycol 3350 [Miralax] 17 gm PO DAILY PRN 02/06/20 Potassium Chloride [Klor-Con] 20 meq PO TID 02/06/20 Sennosides/Docusate Sodium [Senokot-S] 1 tab PO DAILY 02/06/20 Sodium Phosphate,[place]-Dibasic [Fleet Enema] 1 enema RC DAILY PRN 02/06/20 Vits A and D/White Pet/Lanolin [A and D Ointment] 1 appl TOPICAL PRN PRN 02/06/20 guaiFENesin [Mucus Relief] 800 mg PO TID PRN 02/06/20 Cephalexin Monohydrate [Keflex] 500 mg PO QID #8 cap 02/09/20 Forms: Patient Portal Registration
[2020-02-09] MEDS: POLYETHYLENE GLYCOL 3350 17 GM PACKET PO SCH (09:56)
[2020-02-09] MEDS: LACTOBACILLUS ACIDOPHILUS 1 EACH CAPSULE PO SCH (09:56)
[2020-02-09] MEDS: APIXABAN 5 MG TABLET PO SCH (09:56)
[2020-02-09] MEDS: POTASSIUM CHLORIDE 20 MEQ TABLET.SA PO SCH (09:56)
[2020-02-09] MEDS: ROSUVASTATIN CALCIUM 10 MG TABLET PO SCH (09:57)
[2020-02-09] MEDS: MICONAZOLE NITRATE 30 APPL TUBE TP SCH (09:57)
[2020-02-09] MEDS: SENNOSIDES/DOCUSATE SODIUM 1 TAB TABLET PO SCH (09:57)
[2020-02-09] MEDS: LOSARTAN POTASSIUM 50 MG TABLET PO SCH (10:05)
[2020-02-09] MEDS: amLODIPine BESYLATE 5 MG TABLET PO SCH (10:05)
[2020-02-09 14:50] VITALS: BP 115/70
== END 2020-02-09 13:00 | disposition home health service (06) | DRG 603 ==
LOC: ER 09:49 → MS 09:49
PROVIDERS: ADMIT Family Medicine; ATTEND Family Medicine
DX: L89.152 Pressure ulcer of sacral region, stage 2; I69.354 Hemiplegia and hemiparesis following cerebral infarction affecting left non-dominant side; R50.9 Fever, unspecified; Z11.59 Encounter for screening for other viral diseases; I10 Essential (primary) hypertension; L03.116 Cellulitis of left lower limb; D72.829 Elevated white blood cell count, unspecified
CPT/HCPCS: 36415; 71010; 71045; 80048; 80053; 81001; 83605; 84145; 84484; 85025; 85379; 85610; 85652; 86140; 87040; 87633; 96365; 97163; 97530; 99283; 99285; C9803